=== PATIENT | female | born 2000 | race Caucasian/White ===

== ENCOUNTER 2024-01-20 21:44 | Emergency (ER) | payer SELFPAY ==
[2024-01-20] MEDS: Acetaminophen 325 MG Tab PO ONE (22:34)
[2024-01-20] MEDS: Acetaminophen/oxyCODONE 325-5 MG Tab PO ONE (22:35)
[2024-01-20] MEDS: Alum Hydrox/Mag Hydrox/Simeth 15 ML, Metoclopramide 5 MG, Lidocaine 2% 5 ML PO ONE (22:35)
== END 2024-01-20 23:31 | disposition home or self-care (01) ==
LOC: MW.ED 21:44
DX: K52.9 Noninfective gastroenteritis and colitis, unspecified (principal); Z90.89 Acquired absence of other organs; Z79.899 Other long term (current) drug therapy
CPT/HCPCS: 81025; 99284; A9270